=== PATIENT | male | born 1935 | race Caucasian/White ===

== ENCOUNTER 2020-09-09 12:46 | Outpatient (CLI) | payer MEDICARE, OTHER ==
--- NOTE | 2020-09-09 14:21 | ULT ---
BILATERAL RENAL ULTRASOUND: Date: 09/09/2020 INDICATION: Chronic kidney disease. FINDINGS: Both kidneys measure approximately 9.5 cm length. There is cortical thinning bilaterally with increas ed cortical echogenicity bilaterally. No hydronephrosis. Small left renal cyst measures 7-8 mm. The urinary bladder is distended. There is evidence of mild urinary bladder wall thickening. IMPRESSION: 1. Bilateral cortical thinning and increased cortical echogenicity. 2. Small left renal cyst. 3. Mild urinary bladder wall thickening. POS: [facility]
== END 2020-09-09 12:47 | disposition home or self-care (01) ==
LOC: BICULT 12:46
PROVIDERS: ATTEND Internal Medicine Nephrology
DX: N18.5 Chronic kidney disease, stage 5 (principal); N28.1 Cyst of kidney, acquired; R93.421 Abnormal radiologic findings on diagnostic imaging of right kidney; R93.422 Abnormal radiologic findings on diagnostic imaging of left kidney; N28.89 Other specified disorders of kidney and ureter; N32.89 Other specified disorders of bladder
CPT/HCPCS: 76770

== ENCOUNTER 2021-02-16 10:00 | Outpatient (CLI) | payer MEDICARE, OTHER | END 2021-02-16 10:01 | disposition home or self-care (01) | LOC: BICRAD 10:00 | PROVIDERS: ATTEND Internal Medicine Critical Care Medicine | DX: R06.00 Dyspnea, unspecified (principal) | CPT/HCPCS: 71046 ==

== ENCOUNTER 2021-08-13 13:11 | Outpatient (CLI) | payer MEDICARE, OTHER | END 2021-08-13 13:12 | disposition home or self-care (01) | LOC: ULT 13:11 | PROVIDERS: ATTEND Internal Medicine Nephrology | DX: Z01.818 Encounter for other preprocedural examination (principal); N18.5 Chronic kidney disease, stage 5 | CPT/HCPCS: 93970 ==

== ENCOUNTER 2021-09-16 12:04 | Inpatient (IN) | payer MEDICARE, OTHER ==
[2021-09-16 12:59] LABS: #Eosinphils 0.2 thou/uL (0.0-0.7); #Lymphocytes 0.8 thou/uL (1.20-3.40); #Neutrophils 7.9 thou/uL (1.40-6.50); %Basophils 0.3 % (0.0-1.0); %Lymphocytes 8.4 % (21.0-51.0); %Monocytes 9.6 % (0.0-10.0); %Neutrophils 79.7 % (42.0-75.0); Hemoglobin 10.9 g/dL (14.0-18.0); Mean Corpuscular HGB CONC 34.1 g/dL (32.0-36.0); Mean Corpuscular Hemoglobin 34.8 pg (27.0-31.0); Mean Platelet Volume 9.7 fL (7.4-10.4); Platelet Count 166 thou/uL (130-400); Red Blood Cell (RBC) Count 3.13 mill/uL (4.70-6.10); White Blood Cell (WBC) Count 9.8 thou/uL (4.8-10.8)
[2021-09-16 13:21] LABS: ALT (SGPT) 10 U/L (8-55); AST (SGOT) 13 U/L (5-34); Albumin 3.9 g/dL (3.4-4.8); Alkaline Phosphatase 76 U/L (40-110); Anion Gap 25 mmol/L (10-20); BUN (Urea Nitrogen) 111 mg/dL (8.4-25.7); Bilirubin, Total 0.4 mg/dL (0.2-1.2); Calc. Creatinine Clearance 0 mL/min (70-130); Calcium 8.4 mg/dL (7.8-10.44); Carbon Dioxide 24 mmol/L (23-31); Chloride 94 mmol/L (98-107); Globulin 3.6 g/dL (2.4-3.5); Glucose 158 mg/dL (83-110); Protein, Total 7.5 g/dL (5.8-8.1); Sodium 139 mmol/L (136-145)
[2021-09-16] MEDS ORDERED: Dextrose 5% in Water 1,000 ML IV PRN (15:04)
[2021-09-16] MEDS ORDERED: HumaLOG 300 UNITS/3 ML VIAL SC PRN ×2 (15:04)
[2021-09-16] MEDS ORDERED: Dextrose 50% Abboject 50 ML SYRINGE SLOW IVP PRN (15:04)
[2021-09-16] MEDS ORDERED: ceFAZolin Sodium/D5W 2 GM in Premix Bag 1 BAG IVPB SCH (15:15)
[2021-09-16 16:15] LABS: SARS-CoV-2 NAA Rapid Test Not Detected (NotDetected)
[2021-09-16 17:35] VITALS: BMI 23.9
[2021-09-16] MEDS ORDERED: FLU VACC QS2021-22(65YR UP)/PF 240 MCG/0.7 ML SYRINGE IM ONE (18:00)
[2021-09-17 06:38] LABS: #Eosinphils 0.4 thou/uL (0.0-0.7); #Lymphocytes 1.2 thou/uL (1.20-3.40); #Monocytes 0.9 thou/uL (0.11-0.59); #Neutrophils 7.2 thou/uL (1.40-6.50); %Basophils 0.4 % (0.0-1.0); %Eosinophils 4.4 % (0.0-10.0); %Lymphocytes 12.3 % (21.0-51.0); Mean Corpuscular HGB CONC 32.4 g/dL (32.0-36.0); Mean Corpuscular Hemoglobin 32.9 pg (27.0-31.0); Mean Platelet Volume 9.6 fL (7.4-10.4); Platelet Count 184 thou/uL (130-400); Red Blood Cell (RBC) Count 3.34 mill/uL (4.70-6.10); White Blood Cell (WBC) Count 9.7 thou/uL (4.8-10.8)
[2021-09-17] MEDS ORDERED: Fentanyl 100 MCG/2 ML VIAL ONE (06:44)
[2021-09-17] MEDS ORDERED: Protamine Sulfate 50 MG/5 ML VIAL ONE (06:49)
[2021-09-17] MEDS ORDERED: Heparin 5,000 UNITS/ML VIAL ONE (06:49)
[2021-09-17] MEDS ORDERED: Bupivacaine PF 0.5% 30 ML VIAL ONE (06:49)
[2021-09-17] MEDS ORDERED: Heparin 10,000 UNITS/ 10 ML VIAL ONE ×2 (06:49→08:53)
[2021-09-17] MEDS ORDERED: Sodium Chloride 0.9% 10 ML ONE (06:50)
[2021-09-17] MEDS ORDERED: Lidocaine 1% w/Epinephrine 1:100K 20 ML VIAL ONE (06:50)
[2021-09-17] MEDS ORDERED: Propofol 500 MG/50 ML VIAL ONE (06:51)
[2021-09-17 06:57] LABS: Anion Gap 26 mmol/L (10-20); BUN (Urea Nitrogen) 115 mg/dL (8.4-25.7); Calc. Creatinine Clearance 11 mL/min (70-130); Calcium 8.4 mg/dL (7.8-10.44); Carbon Dioxide 24 mmol/L (23-31); Chloride 93 mmol/L (98-107); Glucose 145 mg/dL (83-110); Potassium 3.8 mmol/L (3.5-5.1); Sodium 139 mmol/L (136-145)
[2021-09-17] MEDS ORDERED: ceFAZolin 2 GM/DEX 5% 100 ML BAG ONE (07:00)
[2021-09-17 07:01] LABS: Iron 51 ug/dL (65-175); Iron Binding Capacity, Total 275 mcg/dL (261-462)
[2021-09-17 07:18] LABS: Ferritin 271.87 ng/mL (22-322)
[2021-09-17 07:33] LABS: HBSAB Concentration Less than 8.00 mIU/mL; HBSAg Index 0.18 S/CO (0-0.99); Hep B Core Total Ab Non-Reactive (NonReactive); Hep B Core Total Index 0.05 S/CO (0-0.79); Hep B Surf AB Non-Reactive (NonReactive); Hep C IgG Ab Non-Reactive (NonReactive); Hep C Index 0.07 S/CO (0-0.79)
[2021-09-17 08:03] LABS: Hep B Surf Ag NonReactive S/CO (NonReactive)
[2021-09-17] MEDS ORDERED: Bupivacaine HCl 0.5%/Epinephrine 1:200,000/PF 30 ml Vial ONE (08:18)
[2021-09-17] MEDS ORDERED: Lidocaine 1% PF 5 ML VIAL ONE (08:18)
[2021-09-17] MEDS ORDERED: Ropivacaine 2% HCl/PF (20 MG/10 ML VIAL) ONE (08:18)
[2021-09-17] MEDS ORDERED: Tuberculin PPD 0.1 ML VIAL I-DERMAL SCH ×2 (10:30→12:30)
[2021-09-17] MEDS ORDERED: Acetaminophen 325 MG TAB PO PRN (17:24)
[2021-09-17] MEDS ORDERED: Acetaminophen/Codeine 30-300mg Tablet PO PRN (17:24)
[2021-09-17] MEDS: Rosuvastatin 20 MG TAB PO SCH (20:54)
[2021-09-18 05:58] LABS: #Eosinphils 0.3 thou/uL (0.0-0.7); #Lymphocytes 0.7 thou/uL (1.20-3.40); #Neutrophils 8.8 thou/uL (1.40-6.50); %Basophils 0.3 % (0.0-1.0); %Eosinophils 2.3 % (0.0-10.0); %Lymphocytes 6.8 % (21.0-51.0); %Monocytes 8.8 % (0.0-10.0); %Neutrophils 81.8 % (42.0-75.0); Hemoglobin 10.8 g/dL (14.0-18.0); Mean Corpuscular HGB CONC 34.5 g/dL (32.0-36.0); Mean Platelet Volume 9.3 fL (7.4-10.4); Platelet Count 178 thou/uL (130-400); RBC Distribution Width 14.9 % (11.5-14.5); Red Blood Cell (RBC) Count 3.09 mill/uL (4.70-6.10); White Blood Cell (WBC) Count 10.8 thou/uL (4.8-10.8)
[2021-09-18 06:21] LABS: Anion Gap 22 mmol/L (10-20); BUN (Urea Nitrogen) 76 mg/dL (8.4-25.7); Calc. Creatinine Clearance 14 mL/min (70-130); Calcium 8.9 mg/dL (7.8-10.44); Carbon Dioxide 24 mmol/L (23-31); Chloride 99 mmol/L (98-107); Glucose 136 mg/dL (83-110); Potassium 4.1 mmol/L (3.5-5.1); Sodium 141 mmol/L (136-145)
[2021-09-18] MEDS ORDERED: Nitroglycerin 0.4 MG TAB (25 Tab Bottle) SL PRN (08:39)
[2021-09-18] MEDS ORDERED: Heparin 10,000 UNITS/ 10 ML VIAL ONE (08:51)
[2021-09-18] MEDS ORDERED: Aspirin 81 mg Enteric Coated Tablet PO SCH (13:45)
[2021-09-18] MEDS ORDERED: Clopidogrel Bisulfate 75 MG TAB PO SCH (13:45)
[2021-09-18] MEDS: Docusate 100 MG CAP PO SCH (15:50)
[2021-09-18] MEDS: Carvedilol 3.125 MG TAB PO SCH (15:51)
[2021-09-18] MEDS: Rosuvastatin 20 MG TAB PO SCH (20:43)
[2021-09-19 07:08] LABS: #Eosinphils 0.4 thou/uL (0.0-0.7); #Lymphocytes 0.9 thou/uL (1.20-3.40); #Monocytes 0.8 thou/uL (0.11-0.59); #Neutrophils 7.6 thou/uL (1.40-6.50); %Basophils 0.2 % (0.0-1.0); %Eosinophils 3.9 % (0.0-10.0); %Monocytes 8.2 % (0.0-10.0); %Neutrophils 78.7 % (42.0-75.0); Hemoglobin 11.1 g/dL (14.0-18.0); Mean Corpuscular HGB CONC 33.5 g/dL (32.0-36.0); Mean Corpuscular Hemoglobin 34.7 pg (27.0-31.0); Mean Platelet Volume 9.6 fL (7.4-10.4); Platelet Count 168 thou/uL (130-400); RBC Distribution Width 15.1 % (11.5-14.5); Red Blood Cell (RBC) Count 3.19 mill/uL (4.70-6.10); White Blood Cell (WBC) Count 9.6 thou/uL (4.8-10.8)
[2021-09-19 07:33] LABS: Anion Gap 22 mmol/L (10-20); BUN (Urea Nitrogen) 56 mg/dL (8.4-25.7); Calc. Creatinine Clearance 14 mL/min (70-130); Calcium 9.3 mg/dL (7.8-10.44); Carbon Dioxide 24 mmol/L (23-31); Chloride 96 mmol/L (98-107); Glucose 158 mg/dL (83-110); Potassium 4.1 mmol/L (3.5-5.1); Sodium 138 mmol/L (136-145)
[2021-09-19] MEDS: Allopurinol 100 MG TAB PO SCH (08:31)
[2021-09-19] MEDS: Docusate 100 MG CAP PO SCH (08:31)
[2021-09-19] MEDS: Aspirin 81 mg Enteric Coated Tablet PO SCH (08:32)
[2021-09-19] MEDS: Carvedilol 3.125 MG TAB PO SCH ×2 (08:33→16:21)
[2021-09-19] MEDS: Clopidogrel Bisulfate 75 MG TAB PO SCH (08:33)
[2021-09-19] MEDS ORDERED: READ PPD TEST SITE PO SCH (09:00)
[2021-09-19] MEDS: Rosuvastatin 20 MG TAB PO SCH (20:53)
[2021-09-20 07:14] LABS: #Eosinphils 0.3 thou/uL (0.0-0.7); #Lymphocytes 0.9 thou/uL (1.20-3.40); #Monocytes 0.9 thou/uL (0.11-0.59); #Neutrophils 7.5 thou/uL (1.40-6.50); %Basophils 0.3 % (0.0-1.0); %Eosinophils 3.6 % (0.0-10.0); %Lymphocytes 9.5 % (21.0-51.0); %Monocytes 9.4 % (0.0-10.0); %Neutrophils 77.2 % (42.0-75.0); Hemoglobin 10.2 g/dL (14.0-18.0); Mean Corpuscular HGB CONC 34.2 g/dL (32.0-36.0); Mean Corpuscular Hemoglobin 34.6 pg (27.0-31.0); Mean Platelet Volume 9.3 fL (7.4-10.4); Platelet Count 163 thou/uL (130-400); RBC Distribution Width 14.7 % (11.5-14.5); Red Blood Cell (RBC) Count 2.95 mill/uL (4.70-6.10); White Blood Cell (WBC) Count 9.7 thou/uL (4.8-10.8)
[2021-09-20 07:31] LABS: Anion Gap 20 mmol/L (10-20); BUN (Urea Nitrogen) 64 mg/dL (8.4-25.7); Calc. Creatinine Clearance 12 mL/min (70-130); Calcium 8.3 mg/dL (7.8-10.44); Carbon Dioxide 24 mmol/L (23-31); Chloride 92 mmol/L (98-107); Glucose 158 mg/dL (83-110); Potassium 4.2 mmol/L (3.5-5.1); Sodium 132 mmol/L (136-145)
[2021-09-20] MEDS: Docusate 100 MG CAP PO SCH (08:05)
[2021-09-20] MEDS: Aspirin 81 mg Enteric Coated Tablet PO SCH (08:05)
[2021-09-20] MEDS: Carvedilol 3.125 MG TAB PO SCH ×2 (08:06→17:36)
[2021-09-20] MEDS: Clopidogrel Bisulfate 75 MG TAB PO SCH (08:06)
[2021-09-20] MEDS: Allopurinol 100 MG TAB PO SCH (08:07)
[2021-09-20] MEDS ORDERED: Heparin 10,000 UNITS/ 10 ML VIAL ONE (08:54)
[2021-09-20] MEDS: Rosuvastatin 20 MG TAB PO SCH (21:35)
[2021-09-21] MEDS: Aspirin 81 mg Enteric Coated Tablet PO SCH (08:43)
[2021-09-21] MEDS: Allopurinol 100 MG TAB PO SCH (08:43)
[2021-09-21] MEDS: Carvedilol 3.125 MG TAB PO SCH ×2 (08:43→16:38)
[2021-09-21] MEDS: Clopidogrel Bisulfate 75 MG TAB PO SCH (08:43)
[2021-09-21] MEDS: Docusate 100 MG CAP PO SCH (08:44)
[2021-09-21] MEDS ORDERED: Alogliptin 25 MG TAB PO SCH (09:00)
[2021-09-21 17:29] VITALS: BP 113/56; TEMP 97.3
== END 2021-09-21 18:49 | disposition home or self-care (01) | DRG 264 ==
LOC: ERS 12:04 → T4-A 14:16
PROVIDERS: ADMIT Family Medicine; ATTEND Nurse Practitioner Family
PROC: 031B0ZF Bypass Right Radial Artery to Lower Arm Vein, Open Approach (ICD-10-PCS; principal; 2021-09-17)
PROC: 0JH63XZ Insertion of Tunneled Vascular Access Device into Chest Subcutaneous Tissue and Fascia, Percutaneous Approach (ICD-10-PCS; 2021-09-17)
PROC: 02HV33Z Insertion of Infusion Device into Superior Vena Cava, Percutaneous Approach (ICD-10-PCS; 2021-09-17)
PROC: B548ZZA Ultrasonography of Superior Vena Cava, Guidance (ICD-10-PCS; 2021-09-17)
PROC: 5A1D70Z Performance of Urinary Filtration, Intermittent, Less than 6 Hours Per Day (ICD-10-PCS; 2021-09-17)
DX: I13.2 Hypertensive heart and chronic kidney disease with heart failure and with stage 5 chronic kidney disease, or end stage renal disease (principal); N18.6 End stage renal disease; Z20.822 Contact with and (suspected) exposure to COVID-19; E78.5 Hyperlipidemia, unspecified; M10.9 Gout, unspecified; E11.22 Type 2 diabetes mellitus with diabetic chronic kidney disease; I25.10 Atherosclerotic heart disease of native coronary artery without angina pectoris; M19.90 Unspecified osteoarthritis, unspecified site; I50.9 Heart failure, unspecified; E11.40 Type 2 diabetes mellitus with diabetic neuropathy, unspecified; D63.1 Anemia in chronic kidney disease; Z96.642 Presence of left artificial hip joint; Z96.653 Presence of artificial knee joint, bilateral; Z95.1 Presence of aortocoronary bypass graft; Z98.890 Other specified postprocedural states; Z79.82 Long term (current) use of aspirin; Z79.899 Other long term (current) drug therapy; Z79.84 Long term (current) use of oral hypoglycemic drugs
CPT/HCPCS: 36415; 36416; 71045; 80048; 80053; 82728; 83540; 83550; 83880; 85025; 86580; 86704; 86706; 86803; 87340; 90935; 93005; 93010; 99284; C1751; C1752; G0257; J1644; J2704; J2720; J2795; J3010; S0020; U0002

== ENCOUNTER 2021-09-29 13:40 | Inpatient (IN) | payer MEDICARE, OTHER ==
[2021-09-29 14:34] LABS: Hemoglobin 9.8 g/dL (14.0-18.0); Mean Corpuscular HGB CONC 33.6 g/dL (32.0-36.0); Mean Corpuscular Hemoglobin 35.3 pg (27.0-31.0); Mean Platelet Volume 8.2 fL (7.4-10.4); Platelet Count 189 thou/uL (130-400); RBC Distribution Width 15.3 % (11.5-14.5); Red Blood Cell (RBC) Count 2.78 mill/uL (4.70-6.10); White Blood Cell (WBC) Count 8.6 thou/uL (4.8-10.8)
[2021-09-29 14:54] LABS: #Eosinphils 0.1 thou/uL (0.0-0.7); #Lymphocytes 0.6 thou/uL (1.20-3.40); #Monocytes 0.7 thou/uL (0.11-0.59); #Neutrophils 7.1 thou/uL (1.40-6.50); %Basophils 0.4 % (0.0-1.0); %Eosinophils 1.5 % (0.0-10.0); %Lymphocytes 6.7 % (21.0-51.0); %Monocytes 8.5 % (0.0-10.0)
[2021-09-29 14:57] LABS: MDiff Complete? YES; Macrocytosis SLIGHT = 6-15 cells (100X) (0-5/hpf); Platelet Morphology Comment Appears Adequate
[2021-09-29 15:02] LABS: ALT (SGPT) 43 U/L (8-55); AST (SGOT) 30 U/L (5-34); Albumin 3.7 g/dL (3.4-4.8); Alkaline Phosphatase 102 U/L (40-110); Anion Gap 17 mmol/L (10-20); BUN (Urea Nitrogen) 20 mg/dL (8.4-25.7); Bilirubin, Total 0.4 mg/dL (0.2-1.2); Calc. Creatinine Clearance 0 mL/min (70-130); Carbon Dioxide 28 mmol/L (23-31); Chloride 96 mmol/L (98-107); Globulin 3.4 g/dL (2.4-3.5); Glucose 133 mg/dL (83-110); Potassium 3.8 mmol/L (3.5-5.1); Protein, Total 7.1 g/dL (5.8-8.1); Sodium 137 mmol/L (136-145)
[2021-09-29 15:20] LABS: CKMB 1.5 ng/mL (0-6.6)
[2021-09-29] MEDS ORDERED: Ondansetron PF 4 MG/2 ML Vial IVP PRN (16:11)
[2021-09-29] MEDS ORDERED: Dextrose 50% Abboject 50 ML SYRINGE SLOW IVP PRN (16:37)
[2021-09-29] MEDS ORDERED: Dextrose 5% in Water 1,000 ML IV PRN (16:37)
[2021-09-29] MEDS ORDERED: Amiodarone 150 MG in Dextrose 5% in Water 100 ML IVPB SCH (16:40)
[2021-09-29 18:24] LABS: Troponin I 0.252 ng/mL (< 0.028)
[2021-09-29 18:53] VITALS: BMI 28.6
[2021-09-29 19:04] LABS: SARS-CoV-2 NAA Rapid Test Not Detected (NotDetected)
[2021-09-29] MEDS: Amiodarone 450 MG in Dextrose 5% in Water 250 ML IVPB SCH (20:18)
[2021-09-29] MEDS: Rosuvastatin 20 MG TAB PO SCH (20:19)
[2021-09-29 21:20] LABS: Troponin I 0.236 ng/mL (< 0.028)
[2021-09-30] MEDS: Acetaminophen 325 MG TAB PO PRN ×3 (02:17→12:22)
[2021-09-30 03:57] LABS: #Eosinphils 0.1 thou/uL (0.0-0.7); #Lymphocytes 0.5 thou/uL (1.20-3.40); #Monocytes 0.9 thou/uL (0.11-0.59); #Neutrophils 7.5 thou/uL (1.40-6.50); %Basophils 0.4 % (0.0-1.0); %Eosinophils 1.6 % (0.0-10.0); %Lymphocytes 5.8 % (21.0-51.0); %Monocytes 9.8 % (0.0-10.0); %Neutrophils 82.4 % (42.0-75.0); Hemoglobin 9.3 g/dL (14.0-18.0); Mean Corpuscular HGB CONC 32.7 g/dL (32.0-36.0); Mean Corpuscular Hemoglobin 34.4 pg (27.0-31.0); Mean Platelet Volume 8.1 fL (7.4-10.4); Platelet Count 183 thou/uL (130-400); RBC Distribution Width 15.5 % (11.5-14.5); White Blood Cell (WBC) Count 9.2 thou/uL (4.8-10.8)
[2021-09-30 04:18] LABS: Anion Gap 18 mmol/L (10-20); BUN (Urea Nitrogen) 29 mg/dL (8.4-25.7); Calc. Creatinine Clearance 17 mL/min (70-130); Calcium 8.7 mg/dL (7.8-10.44); Carbon Dioxide 26 mmol/L (23-31); Chloride 94 mmol/L (98-107); Glucose 211 mg/dL (83-110); Potassium 4.1 mmol/L (3.5-5.1); Sodium 134 mmol/L (136-145)
[2021-09-30] MEDS: Amiodarone 450 MG in Dextrose 5% in Water 250 ML IVPB SCH ×2 (05:35→18:27)
[2021-09-30 08:51] LABS: Magnesium 1.7 mg/dL (1.6-2.6)
[2021-09-30] MEDS: Aspirin 81 mg Enteric Coated Tablet PO SCH (08:51)
[2021-09-30] MEDS ORDERED: Furosemide 40 MG TAB PO SCH (09:00)
[2021-09-30] MEDS ORDERED: HumaLOG 300 UNITS/3 ML VIAL SC PRN (11:42)
[2021-09-30] MEDS: HumaLOG 300 UNITS/3 ML VIAL SC PRN ×2 (11:57→17:40)
[2021-09-30] MEDS ORDERED: Docusate 100 MG CAP PO PRN (16:46)
[2021-09-30] MEDS: Allopurinol 100 MG TAB PO SCH (17:39)
[2021-09-30] MEDS: Clopidogrel Bisulfate 75 MG TAB PO SCH (17:39)
[2021-09-30] MEDS: Rosuvastatin 20 MG TAB PO SCH (20:40)
[2021-09-30] MEDS: Magnesium Oxide 400 MG TAB PO SCH (20:40)
[2021-09-30] MEDS: Melatonin 3 MG TAB PO PRN (20:41)
[2021-09-30] MEDS ORDERED: Communication Order-Pharmacy FS SCH (20:45)
[2021-09-30] MEDS ORDERED: Non-Formulary Item 1 EACH (Zinc [Zinc] 50 MG Tablet) PO SCH (21:00)
[2021-10-01 03:33] LABS: #Eosinphils 0.3 thou/uL (0.0-0.7); #Lymphocytes 0.7 thou/uL (1.20-3.40); #Monocytes 1.3 thou/uL (0.11-0.59); #Neutrophils 11.4 thou/uL (1.40-6.50); %Basophils 0.1 % (0.0-1.0); %Eosinophils 2.2 % (0.0-10.0); %Lymphocytes 5.3 % (21.0-51.0); %Monocytes 9.4 % (0.0-10.0); %Neutrophils 83.1 % (42.0-75.0); Hemoglobin 9.6 g/dL (14.0-18.0); Mean Corpuscular HGB CONC 32.5 g/dL (32.0-36.0); Mean Corpuscular Hemoglobin 34.5 pg (27.0-31.0); Mean Platelet Volume 8.3 fL (7.4-10.4); Platelet Count 179 thou/uL (130-400); RBC Distribution Width 15.9 % (11.5-14.5); Red Blood Cell (RBC) Count 2.77 mill/uL (4.70-6.10); White Blood Cell (WBC) Count 13.7 thou/uL (4.8-10.8)
[2021-10-01 03:54] LABS: Anion Gap 20 mmol/L (10-20); BUN (Urea Nitrogen) 39 mg/dL (8.4-25.7); Calc. Creatinine Clearance 13 mL/min (70-130); Calcium 8.7 mg/dL (7.8-10.44); Carbon Dioxide 22 mmol/L (23-31); Chloride 93 mmol/L (98-107); Glucose 147 mg/dL (83-110); Potassium 4.5 mmol/L (3.5-5.1); Sodium 130 mmol/L (136-145)
[2021-10-01] MEDS ORDERED: Lidocaine 1% (PF) 30 ML VIAL ONE (09:52)
[2021-10-01] MEDS ORDERED: Iopamidol 370 76% 100 ML VIAL ONE (10:04)
[2021-10-01] MEDS ORDERED: Epoetin (ESRD) 20,000 UNITS/ML IVP SCH (10:23)
[2021-10-01] MEDS ORDERED: Midazolam HCl 2 mg/2 ml Vial ONE (10:59)
[2021-10-01] MEDS ORDERED: Fentanyl 100 MCG/2 ML VIAL ONE (10:59)
[2021-10-01] MEDS ORDERED: Heparin 10,000 UNITS/ 10 ML VIAL ONE (11:31)
[2021-10-01] MEDS: Amiodarone 450 MG in Dextrose 5% in Water 250 ML IVPB SCH (12:29)
[2021-10-01] MEDS: Folic Acid 1 MG TAB PO SCH (12:32)
[2021-10-01] MEDS: Aspirin 81 mg Enteric Coated Tablet PO SCH (12:32)
[2021-10-01] MEDS: Multivit, Therapeutic 1 TAB PO SCH (12:32)
[2021-10-01] MEDS: Magnesium Oxide 400 MG TAB PO SCH ×2 (12:33→23:34)
[2021-10-01] MEDS: EPOETIN ALFA-EPBX (ESRD) 10,000 UNIT/ML VIAL IVP SCH (12:44)
[2021-10-01] MEDS: Clopidogrel Bisulfate 75 MG TAB PO SCH ×2 (16:47→17:12)
[2021-10-01] MEDS: Allopurinol 100 MG TAB PO SCH (16:48)
[2021-10-01] MEDS ORDERED: HumaLOG 300 UNITS/3 ML VIAL SC PRN (17:03)
[2021-10-01] MEDS: HumaLOG 300 UNITS/3 ML VIAL SC PRN (17:13)
[2021-10-01] MEDS: Rosuvastatin 20 MG TAB PO SCH (23:34)
[2021-10-02] MEDS: Amiodarone 450 MG in Dextrose 5% in Water 250 ML IVPB SCH (02:42)
[2021-10-02 04:02] LABS: #Eosinphils 0.2 thou/uL (0.0-0.7); #Lymphocytes 0.7 thou/uL (1.20-3.40); #Monocytes 0.9 thou/uL (0.11-0.59); #Neutrophils 8.1 thou/uL (1.40-6.50); %Basophils 0.3 % (0.0-1.0); %Eosinophils 1.9 % (0.0-10.0); %Lymphocytes 6.6 % (21.0-51.0); %Monocytes 9.2 % (0.0-10.0); %Neutrophils 81.9 % (42.0-75.0); Hemoglobin 9.7 g/dL (14.0-18.0); Mean Corpuscular HGB CONC 33.9 g/dL (32.0-36.0); Mean Corpuscular Hemoglobin 35.8 pg (27.0-31.0); Mean Platelet Volume 8.5 fL (7.4-10.4); Platelet Count 172 thou/uL (130-400); RBC Distribution Width 15.9 % (11.5-14.5); Red Blood Cell (RBC) Count 2.71 mill/uL (4.70-6.10); White Blood Cell (WBC) Count 9.8 thou/uL (4.8-10.8)
[2021-10-02 04:20] LABS: Albumin 3.5 g/dL (3.4-4.8); Anion Gap 15 mmol/L (10-20); BUN (Urea Nitrogen) 17 mg/dL (8.4-25.7); BUN/Creatinine Ratio 6.67; Calc. Creatinine Clearance 22 mL/min (70-130); Carbon Dioxide 28 mmol/L (23-31); Chloride 95 mmol/L (98-107); Glucose 165 mg/dL (83-110); Phosphorus 2.7 mg/dL (2.3-4.7); Potassium 3.8 mmol/L (3.5-5.1); Sodium 134 mmol/L (136-145)
[2021-10-02] MEDS ORDERED: glipiZIDE 5 MG TAB PO SCH (07:30)
[2021-10-02] MEDS: Aspirin 81 mg Enteric Coated Tablet PO SCH (08:47)
[2021-10-02] MEDS: Magnesium Oxide 400 MG TAB PO SCH ×2 (08:48→21:54)
[2021-10-02] MEDS: Multivit, Therapeutic 1 TAB PO SCH (08:48)
[2021-10-02] MEDS: Folic Acid 1 MG TAB PO SCH (08:48)
[2021-10-02] MEDS: glipiZIDE 5 MG TAB PO SCH (08:48)
[2021-10-02] MEDS ORDERED: FLU VACC QS2021-22(65YR UP)/PF 240 MCG/0.7 ML SYRINGE IM ONE (09:00)
[2021-10-02] MEDS: HumaLOG 300 UNITS/3 ML VIAL SC PRN (11:32)
[2021-10-02] MEDS ORDERED: hydrALAZINE 25 MG TAB PO SCH (15:00)
[2021-10-02] MEDS: Clopidogrel Bisulfate 75 MG TAB PO SCH (15:55)
[2021-10-02] MEDS: Allopurinol 100 MG TAB PO SCH (15:56)
[2021-10-02] MEDS: hydrALAZINE 10 MG TAB PO SCH ×2 (15:56→21:54)
[2021-10-02] MEDS: Rosuvastatin 20 MG TAB PO SCH (21:54)
[2021-10-02] MEDS: Amiodarone 200 MG TAB PO SCH (21:54)
[2021-10-02] MEDS: Melatonin 3 MG TAB PO PRN (23:40)
[2021-10-03] MEDS: HumaLOG 300 UNITS/3 ML VIAL SC PRN ×2 (06:15→17:30)
[2021-10-03] MEDS: Aspirin 81 mg Enteric Coated Tablet PO SCH (08:52)
[2021-10-03] MEDS: Amiodarone 200 MG TAB PO SCH ×2 (08:52→21:41)
[2021-10-03] MEDS: Folic Acid 1 MG TAB PO SCH (08:52)
[2021-10-03] MEDS: glipiZIDE 5 MG TAB PO SCH (08:52)
[2021-10-03] MEDS: hydrALAZINE 10 MG TAB PO SCH (08:52)
[2021-10-03] MEDS: Multivit, Therapeutic 1 TAB PO SCH (08:52)
[2021-10-03] MEDS ORDERED: hydrALAZINE 10 MG TAB PO SCH (09:00)
[2021-10-03] MEDS ORDERED: Zolpidem Tartrate 5 MG TAB PO PRN (12:19)
[2021-10-03] MEDS ORDERED: hydrALAZINE 25 MG TAB PO SCH (15:00)
[2021-10-03 17:13] LABS: Anion Gap 18 mmol/L (10-20); BUN (Urea Nitrogen) 36 mg/dL (8.4-25.7); Calc. Creatinine Clearance 13 mL/min (70-130); Calcium 8.6 mg/dL (7.8-10.44); Carbon Dioxide 23 mmol/L (23-31); Chloride 91 mmol/L (98-107); Glucose 209 mg/dL (83-110); Potassium 4.4 mmol/L (3.5-5.1); Sodium 128 mmol/L (136-145)
[2021-10-03] MEDS: Allopurinol 100 MG TAB PO SCH (17:30)
[2021-10-03] MEDS: Clopidogrel Bisulfate 75 MG TAB PO SCH (17:30)
[2021-10-03] MEDS ORDERED: Melatonin 3 MG TAB PO PRN (18:27)
[2021-10-03] MEDS: Rosuvastatin 20 MG TAB PO SCH (21:41)
[2021-10-04] MEDS ORDERED: diphenhydrAMINE 25 MG CAP PO SCH (00:18)
[2021-10-04] MEDS: Folic Acid 1 MG TAB PO SCH (08:50)
[2021-10-04] MEDS: glipiZIDE 5 MG TAB PO SCH (08:50)
[2021-10-04] MEDS: Amiodarone 200 MG TAB PO SCH ×2 (08:50→20:58)
[2021-10-04] MEDS: Aspirin 81 mg Enteric Coated Tablet PO SCH (08:50)
[2021-10-04] MEDS: Multivit, Therapeutic 1 TAB PO SCH (08:51)
[2021-10-04] MEDS ORDERED: Heparin 10,000 UNITS/ 10 ML VIAL ONE (09:35)
[2021-10-04] MEDS: EPOETIN ALFA-EPBX (ESRD) 10,000 UNIT/ML VIAL IVP SCH (16:13)
[2021-10-04] MEDS: Clopidogrel Bisulfate 75 MG TAB PO SCH (17:46)
[2021-10-04] MEDS: Allopurinol 100 MG TAB PO SCH (17:46)
[2021-10-04] MEDS: Rosuvastatin 10 MG TAB PO SCH (20:58)
[2021-10-05] MEDS ORDERED: Heparin 10,000 UNITS/ 10 ML VIAL ONE (10:08)
[2021-10-05] MEDS: Folic Acid 1 MG TAB PO SCH (11:41)
[2021-10-05] MEDS: Aspirin 81 mg Enteric Coated Tablet PO SCH (11:46)
[2021-10-05] MEDS: Amiodarone 200 MG TAB PO SCH ×2 (11:46→21:16)
[2021-10-05] MEDS: Multivit, Therapeutic 1 TAB PO SCH (11:47)
[2021-10-05] MEDS: glipiZIDE 5 MG TAB PO SCH (11:48)
[2021-10-05] MEDS: Allopurinol 100 MG TAB PO SCH (17:22)
[2021-10-05] MEDS: Clopidogrel Bisulfate 75 MG TAB PO SCH (17:22)
[2021-10-05] MEDS: HumaLOG 300 UNITS/3 ML VIAL SC PRN ×2 (17:58→21:14)
[2021-10-05] MEDS: Rosuvastatin 10 MG TAB PO SCH (21:16)
[2021-10-05] MEDS: Zolpidem Tartrate 5 MG TAB PO PRN (21:17)
[2021-10-06] MEDS ORDERED: Heparin 10,000 UNITS/ 10 ML VIAL ONE (10:06)
[2021-10-06] MEDS: Folic Acid 1 MG TAB PO SCH (13:08)
[2021-10-06] MEDS: Aspirin 81 mg Enteric Coated Tablet PO SCH (13:08)
[2021-10-06] MEDS: Amiodarone 200 MG TAB PO SCH ×2 (13:08→19:56)
[2021-10-06] MEDS: Multivit, Therapeutic 1 TAB PO SCH (13:08)
[2021-10-06] MEDS: glipiZIDE 5 MG TAB PO SCH (13:08)
[2021-10-06] MEDS: EPOETIN ALFA-EPBX (ESRD) 10,000 UNIT/ML VIAL IVP SCH (15:59)
[2021-10-06] MEDS: HumaLOG 300 UNITS/3 ML VIAL SC PRN (18:24)
[2021-10-06] MEDS: Allopurinol 100 MG TAB PO SCH (18:24)
[2021-10-06] MEDS: Clopidogrel Bisulfate 75 MG TAB PO SCH (18:24)
[2021-10-06] MEDS: Zolpidem Tartrate 5 MG TAB PO PRN (19:55)
[2021-10-06] MEDS: Acetaminophen 325 MG TAB PO PRN (19:56)
[2021-10-06] MEDS: Rosuvastatin 10 MG TAB PO SCH (19:56)
[2021-10-07] MEDS: Acetaminophen 325 MG TAB PO PRN ×2 (05:49→20:09)
[2021-10-07] MEDS: HumaLOG 300 UNITS/3 ML VIAL SC PRN ×2 (05:51→17:54)
[2021-10-07] MEDS: glipiZIDE 5 MG TAB PO SCH (06:48)
[2021-10-07] MEDS: Aspirin 81 mg Enteric Coated Tablet PO SCH (09:22)
[2021-10-07] MEDS: Multivit, Therapeutic 1 TAB PO SCH (09:22)
[2021-10-07] MEDS: Folic Acid 1 MG TAB PO SCH (09:22)
[2021-10-07] MEDS: Amiodarone 200 MG TAB PO SCH ×2 (09:23→20:09)
[2021-10-07] MEDS ORDERED: Heparin 10,000 UNITS/ 10 ML VIAL ONE (10:32)
[2021-10-07 11:03] LABS: Hemoglobin 9.8 g/dL (14.0-18.0)
[2021-10-07 11:10] LABS: ALT (SGPT) 20 U/L (8-55); AST (SGOT) 18 U/L (5-34); Albumin 3.6 g/dL (3.4-4.8); Alkaline Phosphatase 95 U/L (40-110); Anion Gap 16 mmol/L (10-20); BUN (Urea Nitrogen) 33 mg/dL (8.4-25.7); Bilirubin, Total 0.4 mg/dL (0.2-1.2); Calc. Creatinine Clearance 15 mL/min (70-130); Calcium 9.3 mg/dL (7.8-10.44); Carbon Dioxide 26 mmol/L (23-31); Chloride 98 mmol/L (98-107); Globulin 3.6 g/dL (2.4-3.5); Glucose 226 mg/dL (83-110); Protein, Total 7.2 g/dL (5.8-8.1); Sodium 135 mmol/L (136-145)
[2021-10-07 12:04] LABS: SARS-CoV-2 PCR by NAA Not Detected (NotDetected)
[2021-10-07] MEDS: Allopurinol 100 MG TAB PO SCH (17:53)
[2021-10-07] MEDS: Clopidogrel Bisulfate 75 MG TAB PO SCH (17:53)
[2021-10-07] MEDS: Rosuvastatin 10 MG TAB PO SCH (20:08)
[2021-10-07] MEDS: Zolpidem Tartrate 5 MG TAB PO PRN (20:09)
[2021-10-08] MEDS: glipiZIDE 5 MG TAB PO SCH (06:31)
[2021-10-08] MEDS: Amiodarone 200 MG TAB PO SCH ×2 (08:56→21:19)
[2021-10-08] MEDS: Folic Acid 1 MG TAB PO SCH (08:56)
[2021-10-08] MEDS: Multivit, Therapeutic 1 TAB PO SCH (08:56)
[2021-10-08] MEDS: Aspirin 81 mg Enteric Coated Tablet PO SCH (08:56)
[2021-10-08] MEDS ORDERED: Heparin 10,000 UNITS/ 10 ML VIAL ONE (10:38)
[2021-10-08] MEDS: HumaLOG 300 UNITS/3 ML VIAL SC PRN (11:32)
[2021-10-08] MEDS: EPOETIN ALFA-EPBX (ESRD) 10,000 UNIT/ML VIAL IVP SCH ×2 (15:36→17:02)
[2021-10-08] MEDS: Allopurinol 100 MG TAB PO SCH (18:25)
[2021-10-08] MEDS: Clopidogrel Bisulfate 75 MG TAB PO SCH (18:25)
[2021-10-08] MEDS: Rosuvastatin 10 MG TAB PO SCH (21:19)
[2021-10-08] MEDS: Acetaminophen 325 MG TAB PO PRN (21:19)
[2021-10-08] MEDS: Zolpidem Tartrate 5 MG TAB PO PRN (21:19)
[2021-10-09] MEDS: glipiZIDE 5 MG TAB PO SCH (06:33)
[2021-10-09] MEDS: Aspirin 81 mg Enteric Coated Tablet PO SCH (09:31)
[2021-10-09] MEDS: Amiodarone 200 MG TAB PO SCH (09:32)
[2021-10-09] MEDS: Multivit, Therapeutic 1 TAB PO SCH (09:32)
[2021-10-09] MEDS: Folic Acid 1 MG TAB PO SCH (09:33)
[2021-10-09] MEDS: Acetaminophen 325 MG TAB PO PRN (09:35)
[2021-10-09 12:06] VITALS: BP 125/60; TEMP 97.9
[2021-10-17] MEDS ORDERED: Amiodarone 200 MG TAB PO SCH (09:00)
[2021-10-31] MEDS ORDERED: Amiodarone 200 MG TAB PO SCH (09:00)
== END 2021-10-09 11:59 | disposition home or self-care (01) | DRG 286 ==
LOC: ERS 13:40 → IMCU/EMU 16:05 → 2NO 10-02 17:52
PROVIDERS: ADMIT Internal Medicine; ATTEND Internal Medicine
PROC: 02HV33Z Insertion of Infusion Device into Superior Vena Cava, Percutaneous Approach (ICD-10-PCS; principal; 2021-09-29)
PROC: 4B02XTZ Measurement of Cardiac Defibrillator, External Approach (ICD-10-PCS; 2021-09-29)
PROC: B2111ZZ Fluoroscopy of Multiple Coronary Arteries using Low Osmolar Contrast (ICD-10-PCS; 2021-10-01)
PROC: 5A1D70Z Performance of Urinary Filtration, Intermittent, Less than 6 Hours Per Day (ICD-10-PCS; 2021-10-01)
DX: I49.01 Ventricular fibrillation (principal); N18.6 End stage renal disease; I13.2 Hypertensive heart and chronic kidney disease with heart failure and with stage 5 chronic kidney disease, or end stage renal disease; Z20.822 Contact with and (suspected) exposure to COVID-19; I50.22 Chronic systolic (congestive) heart failure; E87.1 Hypo-osmolality and hyponatremia; Z96.653 Presence of artificial knee joint, bilateral; Z96.649 Presence of unspecified artificial hip joint; E66.9 Obesity, unspecified; R79.89 Other specified abnormal findings of blood chemistry; E78.5 Hyperlipidemia, unspecified; M10.9 Gout, unspecified; I25.10 Atherosclerotic heart disease of native coronary artery without angina pectoris; E11.22 Type 2 diabetes mellitus with diabetic chronic kidney disease; M19.90 Unspecified osteoarthritis, unspecified site; D63.1 Anemia in chronic kidney disease; I25.5 Ischemic cardiomyopathy; E11.51 Type 2 diabetes mellitus with diabetic peripheral angiopathy without gangrene; K21.9 Gastro-esophageal reflux disease without esophagitis; E83.42 Hypomagnesemia; G47.00 Insomnia, unspecified; E87.70 Fluid overload, unspecified; Z68.26 Body mass index [BMI] 26.0-26.9, adult; Z99.2 Dependence on renal dialysis; Z79.01 Long term (current) use of anticoagulants; Z79.84 Long term (current) use of oral hypoglycemic drugs; Z79.82 Long term (current) use of aspirin; Z79.899 Other long term (current) drug therapy; Z95.2 Presence of prosthetic heart valve; Z88.8 Allergy status to other drugs, medicaments and biological substances; Z95.810 Presence of automatic (implantable) cardiac defibrillator; Z95.1 Presence of aortocoronary bypass graft
CPT/HCPCS: 36415; 36416; 71045; 80048; 80053; 80069; 82553; 83735; 84484; 85014; 85018; 85025; 90471; 90662; 90732; 90935; 93005; 93010; 93306; 93458; G0008; G0009; G0257; J0282; J1644; J1815; J2001; J2250; J3010; J7070; Q5105; Q9967; U0002; U0003; U0005

== ENCOUNTER 2022-06-02 11:04 | Outpatient (CLI) | payer MEDICARE, OTHER | END 2022-06-02 11:05 | disposition home or self-care (01) | LOC: RAD 11:04 | PROVIDERS: ATTEND Internal Medicine Critical Care Medicine | DX: Z92.29 Personal history of other drug therapy (principal) | CPT/HCPCS: 71046 ==

== ENCOUNTER 2022-10-05 06:15 | Inpatient (IN) | payer MEDICARE, OTHER ==
[2022-10-05] MEDS ORDERED: HYDROcodone/Acetaminophen 5/325 mg Tablet PO SCH (11:45)
[2022-10-05 11:54] VITALS: BMI 27.4
[2022-10-05] MEDS ORDERED: Acetaminophen 325 MG TAB PO PRN (12:28)
[2022-10-05] MEDS ORDERED: Dextrose 50% Abboject 50 ML SYRINGE SLOW IVP PRN (12:28)
[2022-10-05] MEDS ORDERED: HumaLOG 300 UNITS/3 ML VIAL SC PRN ×2 (12:28)
[2022-10-05] MEDS ORDERED: Dextrose 5% in Water 1,000 ML IV PRN (12:28)
[2022-10-05] MEDS ORDERED: Cyclobenzaprine 10 MG TAB PO SCH (13:15)
[2022-10-05] MEDS: Heparin 5,000 UNITS/ML VIAL SC SCH ×2 (15:19→21:48)
[2022-10-05] MEDS: Morphine 4 MG/ML VIAL SLOW IVP PRN ×2 (15:20→21:42)
[2022-10-06 04:59] LABS: Anion Gap 16 mmol/L (10-20); BUN (Urea Nitrogen) 21 mg/dL (8.4-25.7); Calc. Creatinine Clearance 15 mL/min (70-130); Calcium 9.1 mg/dL (7.8-10.44); Carbon Dioxide 31 mmol/L (23-31); Chloride 93 mmol/L (98-107); Estimated GFR 15; Glucose 114 mg/dL (83-110); Potassium 4.2 mmol/L (3.5-5.1); Sodium 136 mmol/L (136-145)
[2022-10-06 05:43] LABS: #Eosinphils 0.1 thou/uL (0.0-0.7); #Lymphocytes 0.5 thou/uL (1.20-3.40); #Monocytes 0.7 thou/uL (0.11-0.59); #Neutrophils 6.1 thou/uL (1.40-6.50); %Eosinophils 1.9 % (0.0-10.0); %Lymphocytes 6.2 % (21.0-51.0); %Monocytes 9.3 % (0.0-10.0); %Neutrophils 82.6 % (42.0-75.0); Hemoglobin 10.5 g/dL (14.0-18.0); Mean Corpuscular HGB CONC 30.8 g/dL (32.0-36.0); Mean Corpuscular Hemoglobin 33.8 pg (27.0-31.0); Mean Platelet Volume 9.8 fL (7.4-10.4); Platelet Count 122 10x3/uL (130-400); RBC Distribution Width 15.6 % (11.5-14.5); Red Blood Cell (RBC) Count 3.09 mill/uL (4.70-6.10); White Blood Cell (WBC) Count 7.4 10x3/uL (4.8-10.8)
[2022-10-06] MEDS: Morphine 4 MG/ML VIAL SLOW IVP PRN ×3 (08:20→19:44)
[2022-10-06] MEDS: Heparin 5,000 UNITS/ML VIAL SC SCH ×3 (08:21→22:38)
[2022-10-06] MEDS ORDERED: Nitroglycerin 0.4 MG TAB (25 Tab Bottle) SL PRN (09:52)
[2022-10-06] MEDS ORDERED: Docusate 100 MG CAP PO PRN (09:52)
[2022-10-06] MEDS: Lidocaine 5% Patch TD SCH (11:22)
[2022-10-06] MEDS ORDERED: Rosuvastatin 20 MG TAB PO SCH (21:00)
[2022-10-06] MEDS ORDERED: Transdermal Patch Removal TOP SCH (22:00)
[2022-10-06] MEDS: HYDROcodone/Acetaminophen 5/325 mg Tablet PO PRN (22:27)
[2022-10-07] MEDS: HYDROcodone/Acetaminophen 5/325 mg Tablet PO PRN (04:21)
[2022-10-07 04:42] LABS: #Eosinphils 0.2 thou/uL (0.0-0.7); #Lymphocytes 0.5 thou/uL (1.20-3.40); #Monocytes 0.8 thou/uL (0.11-0.59); #Neutrophils 5.1 thou/uL (1.40-6.50); %Eosinophils 2.8 % (0.0-10.0); %Lymphocytes 7.9 % (21.0-51.0); %Monocytes 11.9 % (0.0-10.0); %Neutrophils 77.5 % (42.0-75.0); Hemoglobin 10.5 g/dL (14.0-18.0); Mean Corpuscular HGB CONC 31.2 g/dL (32.0-36.0); Mean Corpuscular Hemoglobin 34.6 pg (27.0-31.0); Mean Platelet Volume 9.8 fL (7.4-10.4); Platelet Count 120 10x3/uL (130-400); RBC Distribution Width 15.7 % (11.5-14.5); Red Blood Cell (RBC) Count 3.02 mill/uL (4.70-6.10); White Blood Cell (WBC) Count 6.5 10x3/uL (4.8-10.8)
[2022-10-07 05:02] LABS: Anion Gap 20 mmol/L (10-20); BUN (Urea Nitrogen) 39 mg/dL (8.4-25.7); Calc. Creatinine Clearance 10 mL/min (70-130); Calcium 8.7 mg/dL (7.8-10.44); Carbon Dioxide 28 mmol/L (23-31); Chloride 93 mmol/L (98-107); Estimated GFR 10; Glucose 106 mg/dL (83-110); Potassium 5.2 mmol/L (3.5-5.1); Sodium 136 mmol/L (136-145)
[2022-10-07] MEDS: Lidocaine 5% Patch TD SCH (08:40)
[2022-10-07] MEDS ORDERED: Heparin 10,000 UNITS/ 10 ML VIAL ONE (08:57)
[2022-10-07] MEDS ORDERED: Clopidogrel Bisulfate 75 MG TAB PO SCH (09:00)
[2022-10-07] MEDS ORDERED: Folic Acid 1 MG TAB PO SCH (09:00)
[2022-10-07] MEDS ORDERED: Cholecalciferol 1,000 UNITS (25 MCG) TAB PO SCH (09:00)
[2022-10-07] MEDS ORDERED: Allopurinol 100 MG TAB PO SCH (09:00)
[2022-10-07] MEDS ORDERED: Amiodarone 200 MG TAB PO SCH (09:00)
[2022-10-07] MEDS ORDERED: Aspirin 81 mg Enteric Coated Tablet PO SCH (09:00)
[2022-10-07] MEDS ORDERED: Zinc Sulfate 220 MG CAP PO SCH (09:00)
[2022-10-07] MEDS ORDERED: Multivitamin W/ Minerals 1 TAB PO SCH (09:00)
[2022-10-07 10:01] LABS: Hep B Core Total Ab Non-Reactive (NonReactive); Hep B Core Total Index 0.11 S/CO (0-0.79); Hep B Surf Ag Non-Reactive S/CO (NonReactive); Hep C IgG Ab Non-Reactive (NonReactive); Hep C Index 0.06 S/CO (0-0.79)
[2022-10-07 10:21] LABS: HBSAB Concentration Less than 8.00 mIU/mL; Hep B Surf AB Non-Reactive (NonReactive)
[2022-10-07] MEDS: Heparin 5,000 UNITS/ML VIAL SC SCH ×2 (14:24→14:29)
[2022-10-07 19:46] VITALS: BP 103/60; TEMP 98.2
[2022-10-07] MEDS ORDERED: Rosuvastatin 10 MG TAB PO SCH (21:00)
== END 2022-10-07 21:00 | disposition home or self-care (01) | DRG 183 ==
LOC: 2NO 06:15
PROVIDERS: ADMIT Internal Medicine; ATTEND Internal Medicine
PROC: 5A1D70Z Performance of Urinary Filtration, Intermittent, Less than 6 Hours Per Day (ICD-10-PCS; principal; 2022-10-05)
DX: S22.42XA Multiple fractures of ribs, left side, initial encounter for closed fracture (principal); N18.6 End stage renal disease; I13.2 Hypertensive heart and chronic kidney disease with heart failure and with stage 5 chronic kidney disease, or end stage renal disease; N25.81 Secondary hyperparathyroidism of renal origin; I50.22 Chronic systolic (congestive) heart failure; Z20.822 Contact with and (suspected) exposure to COVID-19; E87.5 Hyperkalemia; M25.562 Pain in left knee; D63.1 Anemia in chronic kidney disease; Z96.653 Presence of artificial knee joint, bilateral; E11.22 Type 2 diabetes mellitus with diabetic chronic kidney disease; E78.5 Hyperlipidemia, unspecified; E11.65 Type 2 diabetes mellitus with hyperglycemia; E66.9 Obesity, unspecified; I25.10 Atherosclerotic heart disease of native coronary artery without angina pectoris; W18.30XA Fall on same level, unspecified, initial encounter; E11.51 Type 2 diabetes mellitus with diabetic peripheral angiopathy without gangrene; Z96.642 Presence of left artificial hip joint; Z98.49 Cataract extraction status, unspecified eye; Z99.2 Dependence on renal dialysis; Z95.1 Presence of aortocoronary bypass graft; Z95.810 Presence of automatic (implantable) cardiac defibrillator; Z95.2 Presence of prosthetic heart valve; Z68.26 Body mass index [BMI] 26.0-26.9, adult; Z79.899 Other long term (current) drug therapy; Z79.02 Long term (current) use of antithrombotics/antiplatelets; Z79.84 Long term (current) use of oral hypoglycemic drugs; I25.2 Old myocardial infarction; Z87.891 Personal history of nicotine dependence
CPT/HCPCS: 36415; 36416; 80048; 83735; 85025; 86704; 87340; J1644; J2270; U0003; U0005

== ENCOUNTER 2023-08-19 07:49 | Inpatient (IN) | payer MEDICARE, OTHER ==
[2023-08-19 08:16] LABS: #Eosinphils 0.2 thou/uL (0.0-0.7); #Monocytes 0.6 thou/uL (0.11-0.59); #Neutrophils 7.2 thou/uL (1.40-6.50); %Basophils 0.5 % (0.0-1.0); %Eosinophils 1.7 % (0.0-10.0); %Lymphocytes 6.4 % (21.0-51.0); %Monocytes 7.1 % (0.0-10.0); %Neutrophils 83.7 % (42.0-75.0); Hemoglobin 11.2 g/dL (14.0-18.0); Mean Corpuscular HGB CONC 32.9 g/dL (32.0-36.0); Mean Corpuscular Hemoglobin 34.6 pg (27.0-31.0); Mean Corpuscular Volume 104.9 fl (78.0-98.0); Mean Platelet Volume 11.3 fL (7.4-10.4); Platelet Count 195 10x3/uL (130-400); RBC Distribution Width 15.4 % (11.5-14.5); Red Blood Cell (RBC) Count 3.24 mill/uL (4.70-6.10); White Blood Cell (WBC) Count 8.6 10x3/uL (4.8-10.8)
[2023-08-19 08:40] LABS: ALT (SGPT) 102 U/L (8-55); AST (SGOT) 126 U/L (5-34); Albumin 3.8 g/dL (3.4-4.8); Alkaline Phosphatase 117 U/L (40-110); Anion Gap 22 mmol/L (10-20); BUN (Urea Nitrogen) 19 mg/dL (8.4-25.7); Bilirubin, Total 0.5 mg/dL (0.2-1.2); Calc. Creatinine Clearance 0 mL/min (70-130); Carbon Dioxide 28 mmol/L (23-31); Chloride 95 mmol/L (98-107); Estimated GFR 15; Globulin 3.7 g/dL (2.4-3.5); Glucose 102 mg/dL (83-110); Lipase 13 U/L (8-78); Potassium 3.8 mmol/L (3.5-5.1); Protein, Total 7.5 g/dL (5.8-8.1); Sodium 141 mmol/L (136-145)
[2023-08-19 08:42] LABS: Phosphorus 3.3 mg/dL (2.3-4.7)
[2023-08-19] MEDS ORDERED: Acetaminophen 325 MG TAB PO PRN (09:48)
[2023-08-19] MEDS ORDERED: Senokot S 8.6-50 MG TAB PO PRN (09:48)
[2023-08-19] MEDS ORDERED: Ondansetron ODT 4 MG TAB PO PRN (09:48)
[2023-08-19] MEDS ORDERED: Azithromycin 500 MG in Sodium Chloride 0.9% 250 ML 250 ML IVPB SCH ×2 (10:15→18:00)
[2023-08-19] MEDS ORDERED: cefTRIAXone\\ROCEPHIN 1 GM in Sodium Chloride 0.9% 100 ML IVPB SCH ×2 (10:15→18:00)
[2023-08-19 11:24] VITALS: BMI 27.3
[2023-08-19 13:06] LABS: HBSAB Concentration Less than 8.00 mIU/mL; HBSAg Index 0.23 S/CO (0-0.99); Hep B Core Total Ab Non-Reactive (NonReactive); Hep B Core Total Index 0.05 S/CO (0-0.79); Hep B Surf AB Non-Reactive (NonReactive); Hep B Surf Ag Non-Reactive S/CO (NonReactive); Hep C IgG Ab Non-Reactive S/CO (NonReactive); Hep C Index 0.07 S/CO (0-0.79)
[2023-08-19] MEDS ORDERED: Albumin 25% 25 GM/100 ML BOT IVPB SCH (13:15)
[2023-08-19] MEDS ORDERED: Albumin 25% 25 GM/100 ML BOT IVPB PRN (13:15)
[2023-08-19] MEDS: Heparin 5,000 UNITS/ML VIAL SC SCH ×2 (15:31→21:04)
[2023-08-19] MEDS: cefTRIAXone\\ROCEPHIN 1 GM in Sodium Chloride 0.9% 100 ML IVPB SCH (20:56)
[2023-08-20 04:34] LABS: #Basophils 0.1 thou/uL (0.0-0.2); #Eosinphils 0.1 thou/uL (0.0-0.7); #Monocytes 0.6 thou/uL (0.11-0.59); #Neutrophils 7.1 thou/uL (1.40-6.50); %Basophils 0.6 % (0.0-1.0); %Eosinophils 1.7 % (0.0-10.0); %Lymphocytes 5.4 % (21.0-51.0); %Monocytes 7.3 % (0.0-10.0); %Neutrophils 84.4 % (42.0-75.0); Hematocrit 30.8 % (42.0-52.0); Hemoglobin 10.3 g/dL (14.0-18.0); Mean Corpuscular HGB CONC 33.4 g/dL (32.0-36.0); Mean Corpuscular Hemoglobin 34.6 pg (27.0-31.0); Mean Corpuscular Volume 103.4 fl (78.0-98.0); Mean Platelet Volume 12.2 fL (7.4-10.4); Platelet Count 146 10x3/uL (130-400); RBC Distribution Width 15.6 % (11.5-14.5); Red Blood Cell (RBC) Count 2.98 mill/uL (4.70-6.10); White Blood Cell (WBC) Count 8.5 10x3/uL (4.8-10.8)
[2023-08-20 04:54] LABS: ALT (SGPT) 86 U/L (8-55); AST (SGOT) 109 U/L (5-34); Albumin 3.6 g/dL (3.4-4.8); Alkaline Phosphatase 98 U/L (40-110); Anion Gap 20 mmol/L (10-20); BUN (Urea Nitrogen) 26 mg/dL (8.4-25.7); Bilirubin, Total 0.4 mg/dL (0.2-1.2); Calc. Creatinine Clearance 13 mL/min (70-130); Calcium 9.7 mg/dL (7.8-10.44); Carbon Dioxide 25 mmol/L (23-31); Chloride 97 mmol/L (98-107); Estimated GFR 13; Globulin 3.6 g/dL (2.4-3.5); Glucose 83 mg/dL (83-110); Potassium 4.8 mmol/L (3.5-5.1); Protein, Total 7.2 g/dL (5.8-8.1); Sodium 137 mmol/L (136-145)
[2023-08-20] MEDS ORDERED: Levothyroxine Sodium 75 MCG TAB PO SCH (09:26)
[2023-08-20] MEDS: Docusate 100 MG CAP PO SCH (09:46)
[2023-08-20] MEDS: CO Q-10 CAPSULE 100 MG PO SCH (09:46)
[2023-08-20] MEDS: Clopidogrel Bisulfate 75 MG TAB PO SCH (09:46)
[2023-08-20] MEDS: Sertraline 100 MG TAB PO SCH (09:47)
[2023-08-20] MEDS: Aspirin 81 mg Enteric Coated Tablet PO SCH (09:47)
[2023-08-20] MEDS: Folic Acid 1 MG TAB PO SCH (09:47)
[2023-08-20] MEDS: Zinc Sulfate 220 MG CAP PO SCH (09:47)
[2023-08-20] MEDS: Amiodarone 200 MG TAB PO SCH (09:48)
[2023-08-20] MEDS: Heparin 5,000 UNITS/ML VIAL SC SCH ×3 (09:48→21:04)
[2023-08-20] MEDS ORDERED: Rosuvastatin 10 MG TAB PO SCH (10:15)
[2023-08-20] MEDS ORDERED: Allopurinol 100 MG TAB PO SCH (10:15)
[2023-08-20 10:44] LABS: Free T4 (Free Thyroxine) Less than 0.40 ng/dL (0.70-1.48)
[2023-08-20] MEDS: Cyanocobalamin (Vitamin B-12) 1,000 MCG TAB PO SCH (10:59)
[2023-08-20] MEDS: Cholecalciferol 1,000 UNITS (25 MCG) TAB PO SCH (11:12)
[2023-08-20] MEDS: cefTRIAXone\\ROCEPHIN 1 GM in Sodium Chloride 0.9% 100 ML IVPB SCH (18:53)
[2023-08-21 04:20] LABS: #Eosinphils 0.2 thou/uL (0.0-0.7); #Monocytes 0.6 thou/uL (0.11-0.59); #Neutrophils 6.3 thou/uL (1.40-6.50); %Basophils 0.4 % (0.0-1.0); %Eosinophils 2.8 % (0.0-10.0); %Lymphocytes 6.4 % (21.0-51.0); %Monocytes 7.7 % (0.0-10.0); Hematocrit 27.6 % (42.0-52.0); Hemoglobin 9.2 g/dL (14.0-18.0); Mean Corpuscular HGB CONC 33.3 g/dL (32.0-36.0); Mean Corpuscular Hemoglobin 34.2 pg (27.0-31.0); Mean Corpuscular Volume 102.6 fl (78.0-98.0); Mean Platelet Volume 11.7 fL (7.4-10.4); Platelet Count 160 10x3/uL (130-400); RBC Distribution Width 15.5 % (11.5-14.5); Red Blood Cell (RBC) Count 2.69 mill/uL (4.70-6.10); White Blood Cell (WBC) Count 7.6 10x3/uL (4.8-10.8)
[2023-08-21 04:40] LABS: Anion Gap 19 mmol/L (10-20); BUN (Urea Nitrogen) 35 mg/dL (8.4-25.7); Calc. Creatinine Clearance 10 mL/min (70-130); Calcium 9.6 mg/dL (7.8-10.44); Carbon Dioxide 26 mmol/L (23-31); Chloride 96 mmol/L (98-107); Estimated GFR 10; Glucose 102 mg/dL (83-110); Potassium 4.4 mmol/L (3.5-5.1); Sodium 137 mmol/L (136-145)
[2023-08-21] MEDS ORDERED: Levothyroxine Sodium 75 MCG TAB PO SCH (06:00)
[2023-08-21] MEDS ORDERED: Rosuvastatin 10 MG TAB PO SCH (09:00)
[2023-08-21] MEDS: Sertraline 100 MG TAB PO SCH (09:03)
[2023-08-21] MEDS: Aspirin 81 mg Enteric Coated Tablet PO SCH (09:04)
[2023-08-21] MEDS: CO Q-10 CAPSULE 100 MG PO SCH (09:04)
[2023-08-21] MEDS: Allopurinol 100 MG TAB PO SCH (09:05)
[2023-08-21] MEDS: Folic Acid 1 MG TAB PO SCH (09:06)
[2023-08-21] MEDS: Amiodarone 200 MG TAB PO SCH (09:06)
[2023-08-21] MEDS: Docusate 100 MG CAP PO SCH (09:06)
[2023-08-21] MEDS: Clopidogrel Bisulfate 75 MG TAB PO SCH (09:06)
[2023-08-21] MEDS: Zinc Sulfate 220 MG CAP PO SCH (09:06)
[2023-08-21] MEDS: Heparin 5,000 UNITS/ML VIAL SC SCH ×3 (09:07→20:17)
[2023-08-21] MEDS: Cholecalciferol 1,000 UNITS (25 MCG) TAB PO SCH (10:29)
[2023-08-21] MEDS: Cyanocobalamin (Vitamin B-12) 1,000 MCG TAB PO SCH (10:30)
[2023-08-21] MEDS ORDERED: Albumin 25% 25 GM/100 ML BOT IVPB PRN (10:58)
[2023-08-21] MEDS ORDERED: Heparin 10,000 UNITS/ 10 ML VIAL ONE (16:02)
[2023-08-21] MEDS ORDERED: Levothyroxine Sodium 25 MCG TAB PO SCH (16:30)
[2023-08-21] MEDS: cefTRIAXone\\ROCEPHIN 1 GM in Sodium Chloride 0.9% 100 ML IVPB SCH (16:40)
[2023-08-21] MEDS: Midodrine HCl 5 MG TAB PO SCH (20:18)
[2023-08-22] MEDS ORDERED: hydrOXYzine Pamoate 25 mg Capsule PO SCH (01:45)
[2023-08-22 04:51] LABS: #Eosinphils 0.1 thou/uL (0.0-0.7); #Monocytes 0.6 thou/uL (0.11-0.59); #Neutrophils 6.7 thou/uL (1.40-6.50); %Basophils 0.5 % (0.0-1.0); %Eosinophils 1.5 % (0.0-10.0); %Lymphocytes 6.8 % (21.0-51.0); %Monocytes 7.2 % (0.0-10.0); %Neutrophils 83.4 % (42.0-75.0); Hemoglobin 9.3 g/dL (14.0-18.0); Mean Corpuscular HGB CONC 33.2 g/dL (32.0-36.0); Mean Corpuscular Volume 105.3 fl (78.0-98.0); Mean Platelet Volume 11.7 fL (7.4-10.4); Platelet Count 166 10x3/uL (130-400); RBC Distribution Width 15.6 % (11.5-14.5); Red Blood Cell (RBC) Count 2.66 mill/uL (4.70-6.10); White Blood Cell (WBC) Count 8.1 10x3/uL (4.8-10.8)
[2023-08-22] MEDS: Levothyroxine Sodium 25 MCG TAB PO SCH (05:34)
[2023-08-22 07:26] LABS: ALT (SGPT) 74 U/L (8-55); AST (SGOT) 72 U/L (5-34); Albumin 4.2 g/dL (3.4-4.8); Alkaline Phosphatase 94 U/L (40-110); Anion Gap 20 mmol/L (10-20); BUN (Urea Nitrogen) 21 mg/dL (8.4-25.7); Bilirubin, Total 0.5 mg/dL (0.2-1.2); Calc. Creatinine Clearance 14 mL/min (70-130); Calcium 9.3 mg/dL (7.8-10.44); Carbon Dioxide 27 mmol/L (23-31); Chloride 94 mmol/L (98-107); Estimated GFR 15; Globulin 3.3 g/dL (2.4-3.5); Glucose 107 mg/dL (83-110); Potassium 4.1 mmol/L (3.5-5.1); Protein, Total 7.5 g/dL (5.8-8.1); Sodium 137 mmol/L (136-145)
[2023-08-22] MEDS ORDERED: Albumin 25% 25 GM/100 ML BOT IVPB PRN (10:16)
[2023-08-22] MEDS: Multivitamin W/ Minerals 1 TAB PO SCH (12:27)
[2023-08-22] MEDS: Aspirin 81 mg Enteric Coated Tablet PO SCH (12:27)
[2023-08-22] MEDS: CO Q-10 CAPSULE 100 MG PO SCH (12:27)
[2023-08-22] MEDS: Amiodarone 200 MG TAB PO SCH (12:28)
[2023-08-22] MEDS: Docusate 100 MG CAP PO SCH (12:28)
[2023-08-22] MEDS: Clopidogrel Bisulfate 75 MG TAB PO SCH (12:28)
[2023-08-22] MEDS: Allopurinol 100 MG TAB PO SCH (12:28)
[2023-08-22] MEDS: Midodrine HCl 5 MG TAB PO SCH ×3 (12:28→20:19)
[2023-08-22] MEDS: Sertraline 100 MG TAB PO SCH (12:28)
[2023-08-22] MEDS: Zinc Sulfate 220 MG CAP PO SCH (12:28)
[2023-08-22] MEDS: Folic Acid 1 MG TAB PO SCH (12:28)
[2023-08-22] MEDS ORDERED: Melatonin 3 MG TAB PO PRN (16:09)
[2023-08-22] MEDS: Cholecalciferol 1,000 UNITS (25 MCG) TAB PO SCH (17:28)
[2023-08-22] MEDS: Cyanocobalamin (Vitamin B-12) 1,000 MCG TAB PO SCH (17:29)
[2023-08-22] MEDS: Heparin 5,000 UNITS/ML VIAL SC SCH (17:46)
[2023-08-23] MEDS ORDERED: Midodrine HCl 5 MG TAB PO SCH (01:15)
[2023-08-23] MEDS: Levothyroxine Sodium 25 MCG TAB PO SCH (05:21)
[2023-08-23] MEDS ORDERED: Heparin 10,000 UNITS/ 10 ML VIAL ONE (08:35)
[2023-08-23] MEDS: Aspirin 81 mg Enteric Coated Tablet PO SCH (09:30)
[2023-08-23] MEDS: Cyanocobalamin (Vitamin B-12) 1,000 MCG TAB PO SCH (09:30)
[2023-08-23] MEDS: Docusate 100 MG CAP PO SCH (09:35)
[2023-08-23] MEDS: Sertraline 100 MG TAB PO SCH (09:35)
[2023-08-23] MEDS: Midodrine HCl 5 MG TAB PO SCH ×3 (09:35→19:49)
[2023-08-23] MEDS: Clopidogrel Bisulfate 75 MG TAB PO SCH (09:36)
[2023-08-23] MEDS: Cholecalciferol 1,000 UNITS (25 MCG) TAB PO SCH (09:38)
[2023-08-23] MEDS: Folic Acid 1 MG TAB PO SCH (09:40)
[2023-08-23] MEDS: Amiodarone 200 MG TAB PO SCH (09:41)
[2023-08-23] MEDS: Allopurinol 100 MG TAB PO SCH (09:44)
[2023-08-23] MEDS: Multivitamin W/ Minerals 1 TAB PO SCH (09:44)
[2023-08-23] MEDS: Zinc Sulfate 220 MG CAP PO SCH (09:44)
[2023-08-23] MEDS: CO Q-10 CAPSULE 100 MG PO SCH (09:44)
[2023-08-23] MEDS ORDERED: Albumin 25% 25 GM/100 ML BOT IVPB PRN (13:21)
[2023-08-23] MEDS: Albumin 25% 25 GM/100 ML BOT IVPB SCH (18:35)
[2023-08-24] MEDS: Albumin 25% 25 GM/100 ML BOT IVPB SCH (01:03)
[2023-08-24] MEDS: Levothyroxine Sodium 25 MCG TAB PO SCH (04:54)
[2023-08-24] MEDS: Aspirin 81 mg Enteric Coated Tablet PO SCH (09:33)
[2023-08-24] MEDS: Cyanocobalamin (Vitamin B-12) 1,000 MCG TAB PO SCH (09:33)
[2023-08-24] MEDS: Sertraline 100 MG TAB PO SCH (09:33)
[2023-08-24] MEDS: Amiodarone 200 MG TAB PO SCH (09:33)
[2023-08-24] MEDS: Docusate 100 MG CAP PO SCH (09:34)
[2023-08-24] MEDS: Allopurinol 100 MG TAB PO SCH (09:34)
[2023-08-24] MEDS: Midodrine HCl 5 MG TAB PO SCH ×3 (09:34→20:25)
[2023-08-24] MEDS: Multivitamin W/ Minerals 1 TAB PO SCH (09:34)
[2023-08-24] MEDS: Clopidogrel Bisulfate 75 MG TAB PO SCH (09:34)
[2023-08-24] MEDS: Cholecalciferol 1,000 UNITS (25 MCG) TAB PO SCH (09:35)
[2023-08-24] MEDS: Folic Acid 1 MG TAB PO SCH (09:35)
[2023-08-24] MEDS: CO Q-10 CAPSULE 100 MG PO SCH (09:35)
[2023-08-24] MEDS: Zinc Sulfate 220 MG CAP PO SCH (09:35)
[2023-08-25] MEDS: Levothyroxine Sodium 25 MCG TAB PO SCH (06:06)
[2023-08-25] MEDS: CO Q-10 CAPSULE 100 MG PO SCH (08:40)
[2023-08-25] MEDS: Cyanocobalamin (Vitamin B-12) 1,000 MCG TAB PO SCH (08:40)
[2023-08-25] MEDS: Sertraline 100 MG TAB PO SCH (08:41)
[2023-08-25] MEDS: Midodrine HCl 5 MG TAB PO SCH ×2 (08:41→14:29)
[2023-08-25] MEDS: Allopurinol 100 MG TAB PO SCH ×2 (08:41→08:48)
[2023-08-25] MEDS: Folic Acid 1 MG TAB PO SCH (08:41)
[2023-08-25] MEDS: Aspirin 81 mg Enteric Coated Tablet PO SCH (08:41)
[2023-08-25] MEDS: Zinc Sulfate 220 MG CAP PO SCH (08:41)
[2023-08-25] MEDS: Amiodarone 200 MG TAB PO SCH (08:41)
[2023-08-25] MEDS: Multivitamin W/ Minerals 1 TAB PO SCH (08:41)
[2023-08-25] MEDS: Clopidogrel Bisulfate 75 MG TAB PO SCH (08:42)
[2023-08-25] MEDS: Docusate 100 MG CAP PO SCH (08:42)
[2023-08-25] MEDS: Cholecalciferol 1,000 UNITS (25 MCG) TAB PO SCH (08:56)
[2023-08-25] MEDS: Morphine 2 MG/ML VIAL SLOW IVP PRN ×2 (14:29→20:00)
[2023-08-26] MEDS: Morphine 2 MG/ML VIAL SLOW IVP PRN ×6 (08:52→21:33)
[2023-08-26] MEDS: Docusate 100 MG CAP PO SCH (08:54)
[2023-08-26 22:30] VITALS: BP 108/56; TEMP 97.8
== END 2023-08-26 22:00 | disposition hospice, inpatient (51) | DRG 643 ==
LOC: ERS 07:49 → SUATTDRO 07:49 → 2NO 09:30 → OBSVTOIN 08-20 09:29
PROVIDERS: ADMIT Family Medicine; ATTEND Internal Medicine Critical Care Medicine
PROC: 5A1D70Z Performance of Urinary Filtration, Intermittent, Less than 6 Hours Per Day (ICD-10-PCS; principal; 2023-08-19)
PROC: 5A1D70Z Performance of Urinary Filtration, Intermittent, Less than 6 Hours Per Day (ICD-10-PCS; 2023-08-21)
PROC: 5A1D70Z Performance of Urinary Filtration, Intermittent, Less than 6 Hours Per Day (ICD-10-PCS; 2023-08-22)
PROC: 5A1D70Z Performance of Urinary Filtration, Intermittent, Less than 6 Hours Per Day (ICD-10-PCS; 2023-08-23)
DX: E03.9 Hypothyroidism, unspecified (principal); I50.43 Acute on chronic combined systolic (congestive) and diastolic (congestive) heart failure; N18.6 End stage renal disease; J18.9 Pneumonia, unspecified organism; I13.2 Hypertensive heart and chronic kidney disease with heart failure and with stage 5 chronic kidney disease, or end stage renal disease; I42.9 Cardiomyopathy, unspecified; E87.70 Fluid overload, unspecified; Z66 Do not resuscitate; Z51.5 Encounter for palliative care; R53.1 Weakness; M10.9 Gout, unspecified; I25.10 Atherosclerotic heart disease of native coronary artery without angina pectoris; E11.22 Type 2 diabetes mellitus with diabetic chronic kidney disease; E78.5 Hyperlipidemia, unspecified; D63.1 Anemia in chronic kidney disease; I48.0 Paroxysmal atrial fibrillation; I25.5 Ischemic cardiomyopathy; I25.2 Old myocardial infarction; Z95.2 Presence of prosthetic heart valve; Z99.2 Dependence on renal dialysis; Z91.158 Patient's noncompliance with renal dialysis for other reason; Z79.82 Long term (current) use of aspirin; Z79.84 Long term (current) use of oral hypoglycemic drugs; Z79.899 Other long term (current) drug therapy; Z95.1 Presence of aortocoronary bypass graft; Z98.890 Other specified postprocedural states; Z82.49 Family history of ischemic heart disease and other diseases of the circulatory system
CPT/HCPCS: 36415; 70450; 71045; 80048; 80053; 83690; 83735; 84100; 84439; 84443; 84481; 85025; 86704; 90935; 93005; 93306; 96372; 96374; 96375; G0257; G0378; J0456; J0696; J1644; J2272; J3490; J7050; P9047; Q0162; Q0177

== ENCOUNTER 2023-08-26 22:00 | Inpatient (IN) | payer MEDICARE, OTHER ==
[2023-08-26] MEDS ORDERED: Scopolamine 1.5 mg/72 hour Patch TOP PRN (22:45)
[2023-08-26] MEDS ORDERED: Acetaminophen 325 MG TAB PO PRN (22:45)
[2023-08-26] MEDS ORDERED: Haloperidol Lactate 5 MG/ML VIAL SLOW IVP PRN (22:45)
[2023-08-26] MEDS ORDERED: Ondansetron PF 4 MG/2 ML Vial IVP PRN (22:45)
[2023-08-27] MEDS: fentaNYL 50 mcg/mL 1 mL Vial SLOW IVP PRN ×3 (02:17→15:48)
[2023-08-27] MEDS: Lorazepam 2 MG/ML VIAL SLOW IVP PRN ×2 (03:01→19:31)
[2023-08-27] MEDS: GLYCOPYRROLATE/PF 0.2 MG/ML VIAL SLOW IVP PRN ×2 (03:12→13:12)
[2023-08-27] MEDS ORDERED: Senokot 8.6 MG TAB PO SCH (09:00)
[2023-08-27] MEDS ORDERED: Bisacodyl 10 MG SUPP PR PRN (16:34)
[2023-08-28 07:58] VITALS: BP 96/49; TEMP 97.6
[2023-08-28] MEDS: fentaNYL 50 mcg/mL 1 mL Vial SLOW IVP PRN (08:46)
== END 2023-08-28 09:21 | disposition expired | DRG 951 ==
LOC: 2NO 22:00 → UNDOADMIN 22:07 → SURG A 23:49
PROVIDERS: ADMIT Family Medicine; ATTEND Internal Medicine Critical Care Medicine
DX: Z51.5 Encounter for palliative care (principal); N18.6 End stage renal disease; I13.2 Hypertensive heart and chronic kidney disease with heart failure and with stage 5 chronic kidney disease, or end stage renal disease; I50.9 Heart failure, unspecified; E03.9 Hypothyroidism, unspecified; I48.91 Unspecified atrial fibrillation; D63.1 Anemia in chronic kidney disease; E11.22 Type 2 diabetes mellitus with diabetic chronic kidney disease; Z99.2 Dependence on renal dialysis
CPT/HCPCS: J2060; J3010; J3490